=== PATIENT | male | born 1950 | race Caucasian/White ===

== ENCOUNTER 2023-06-14 12:43 | Emergency (ER) | payer MEDICARE ==
[~2023-06-14] VITALS: Ht 172.7 cm; Wt 95.3 kg
[2023-06-14 12:45] VITALS: BP_SYST 147; PULSE 82; RESP 18; TEMP 98.2; O2SAT 96
[2023-06-14 14:00] LABS: BASOPHILS # (AUTO) 0.1 K/uL (0.0-0.2); BASOPHILS % (AUTO) 0.8 % (0.0-2.0); EOSINOPHILS # (AUTO) 0.1 K/uL (0.0-0.4); EOSINOPHILS % (AUTO) 1.9 % (0.0-4.0); HEMATOCRIT 38.7 % (36-54); HEMOGLOBIN 12.5 g/dL (14.0-18.0); LYMPHOCYTES # (AUTO) 1.9 K/uL (1.0-5.5); LYMPHOCYTES % (AUTO) 28.6 % (20.5-51.5); MEAN CORPUSCULAR HEMOGLOBIN 31 pg (27-31); MEAN CORPUSCULAR HGB CONC 32 % (32-36); MEAN CORPUSCULAR VOLUME 95 fL (79.0-98.0); MONOCYTES # (AUTO) 0.7 K/uL (0.0-1.0); MONOCYTES % (AUTO) 10.5 % (1.7-9.3); NEUTROPHILS # (AUTO) 3.9 K/uL (1.8-7.7); NEUTROPHILS % (AUTO) 58.2 % (40.0-70.0); PLATELET COUNT (AUTO) 157 K/uL (130-430); RED CELL DISTRIBUTION WIDTH 13.9 % (9.0-15.0); WHITE BLOOD COUNT (AUTO) 6.6 K/uL (4.8-10.8)
[2023-06-14] MEDS ORDERED: FURO-150 PO (14:10)
[2023-06-14] MEDS ORDERED: DABI110C PO (14:10)
[2023-06-14 14:16] LABS: PROTHROMBIN TIME 10.8 SECS (9.5-12.5)
[2023-06-14 14:18] LABS: ANION GAP 9 (5-15); CALCIUM 9.4 mg/dL (8.4-11.0); CARBON DIOXIDE 20 mmol/L (23-29); CHLORIDE 103 mmol/L (98-107); CREATININE 0.91 mg/dL (0.55-1.30); GLUCOSE 104 mg/dL (74-106); POTASSIUM 3.7 mmol/L (3.5-5.1); SODIUM SERUM 132 mmol/L (136-145); UREA NITROGEN, BLOOD 25 mg/dL (8-21)
[2023-06-14 14:24] LABS: ALANINE AMINOTRANSFERASE 27 U/L (12-78); ALBUMIN 3.4 g/dL (3.4-4.8); ASPARTATE AMINOTRANSFERASE 18 U/L (10-37); TOTAL BILIRUBIN 0.4 mg/dL (0.0-1.0)
[2023-06-14] MEDS ORDERED: NITROGLYCERIN 0.4 MG TAB.SUBL SL ONE (17:15)
[2023-06-14] MEDS ORDERED: MORPHINE 2 MG/ML INJ. SYRINGE IVP ONE (18:00)
[2023-06-14 18:12] VITALS: BP_SYST 123; PULSE 81; RESP 19; TEMP 97.8; O2SAT 98
== END 2023-06-14 18:10 | disposition left against medical advice (07) ==
LOC: SED 12:43
DX: R07.9 Chest pain, unspecified (principal); I10 Essential (primary) hypertension; Z88.0 Allergy status to penicillin; Z88.6 Allergy status to analgesic agent; Z88.8 Allergy status to other drugs, medicaments and biological substances; Z79.899 Other long term (current) drug therapy
CPT/HCPCS: 36415; 71045; 80053; 84484; 85025; 85610-TC; 85730-TC; 93005; 99285

== ENCOUNTER 2023-06-18 07:04 | Emergency (ER) | payer MEDICARE ==
[~2023-06-18] VITALS: Ht 177.8 cm; Wt 99.8 kg
[~2023-06-18 07:04] MED LIST: DABI110C PO; FURO-150 PO
[2023-06-18] MEDS ORDERED: FAMOTIDINE PF 20 MG/2 ML VIAL IVP ONE (07:15)
[2023-06-18] MEDS ORDERED: ONDANSETRON HCL 4 MG/2 ML VIAL IVP ONE (07:15)
[2023-06-18 07:41] LABS: BASOPHILS % (AUTO) 0.4 % (0.0-2.0); EOSINOPHILS # (AUTO) 0.1 K/uL (0.0-0.4); EOSINOPHILS % (AUTO) 1.2 % (0.0-4.0); HEMATOCRIT 40.8 % (36-54); HEMOGLOBIN 13.2 g/dL (14.0-18.0); LYMPHOCYTES # (AUTO) 1.2 K/uL (1.0-5.5); LYMPHOCYTES % (AUTO) 16.1 % (20.5-51.5); MEAN CORPUSCULAR HEMOGLOBIN 31 pg (27-31); MEAN CORPUSCULAR HGB CONC 32 % (32-36); MEAN CORPUSCULAR VOLUME 95 fL (79.0-98.0); MONOCYTES # (AUTO) 0.6 K/uL (0.0-1.0); MONOCYTES % (AUTO) 7.4 % (1.7-9.3); NEUTROPHILS # (AUTO) 5.7 K/uL (1.8-7.7); NEUTROPHILS % (AUTO) 74.9 % (40.0-70.0); PLATELET COUNT (AUTO) 170 K/uL (130-430); RED BLOOD CELL COUNT(AUTO) 4.31 MIL/uL (4.2-6.2); RED CELL DISTRIBUTION WIDTH 13.8 % (9.0-15.0); WHITE BLOOD COUNT (AUTO) 7.6 K/uL (4.8-10.8)
[2023-06-18 07:52] VITALS: BP_SYST 130; PULSE 76; RESP 18; TEMP 98.2; O2SAT 97
[2023-06-18 07:52] LABS: ANION GAP 9 (5-15); CALCIUM 9.5 mg/dL (8.4-11.0); CARBON DIOXIDE 25 mmol/L (23-29); CHLORIDE 103 mmol/L (98-107); CREATININE 0.98 mg/dL (0.55-1.30); GLUCOSE 122 mg/dL (74-106); POTASSIUM 4.1 mmol/L (3.5-5.1); SODIUM SERUM 137 mmol/L (136-145); UREA NITROGEN, BLOOD 25 mg/dL (8-21)
[2023-06-18 07:56] LABS: INR 1.1 (0.80-1.20)
[2023-06-18 07:59] LABS: ALANINE AMINOTRANSFERASE 28 U/L (12-78); ALBUMIN 3.7 g/dL (3.4-4.8); ASPARTATE AMINOTRANSFERASE 18 U/L (10-37); TOTAL BILIRUBIN 0.4 mg/dL (0.0-1.0); TOTAL PROTEIN, SERUM 7.6 g/dL (6.4-8.3)
[2023-06-18] MEDS ORDERED: MORPHINE 4 MG INJ. 4 MG/ML VIAL IVP ONE (08:00)
[2023-06-18] MEDS ORDERED: NITROGLYCERIN 0.4 MG TAB.SUBL SL ONE (08:00)
[2023-06-18] MEDS ORDERED: ASPIRIN 325 MG TABLET PO ONE (10:00)
[2023-06-18 12:20] LABS: BILIRUBIN,URINE NEGATIVE (NEGATIVE); BLOOD, URINE NEGATIVE (NEGATIVE); CLARITY/URINE CLEAR (CLEAR); GLUCOSE,URINE NEGATIVE (NEGATIVE); KETONES,URINE NEGATIVE (NEGATIVE); LEUKOCYTE ESTERASE ,URINE NEGATIVE (NEGATIVE); NITRITE, URINE NEGATIVE (NEGATIVE); PROTEIN URINE NEGATIVE (NEGATIVE); UROBILINOGEN,URINE 0.2 (0.2-1.0)
[2023-06-18 12:21] LABS: COLOR,URINE YELLOW (YELLOW)
[2023-06-18 12:28] VITALS: BP_SYST 144; PULSE 71; RESP 20; TEMP 97.1; O2SAT 98
== END 2023-06-18 11:33 | disposition home or self-care (01) ==
LOC: SED 07:04
DX: R10.13 Epigastric pain (principal); R07.2 Precordial pain; R53.1 Weakness; I10 Essential (primary) hypertension; Z88.0 Allergy status to penicillin; Z88.6 Allergy status to analgesic agent; Z88.8 Allergy status to other drugs, medicaments and biological substances; Z79.899 Other long term (current) drug therapy
CPT/HCPCS: 99285; 96374; 71045; 96375; 80053; 81001; 83880; 83690; 85025; 85610; 85730; 87040; 87086; 84484; 36415; 93005; 83605; 81003; J3490; J2405; J2270

== ENCOUNTER 2023-09-02 01:03 | Inpatient (IN) | payer MEDICARE ==
[2023-09-02] VITALS (7 sets, daily range): BP systolic 109–154; PULSE 63–76; RESP 15–20; TEMP 96.9–100; O2SAT 90–100
[~2023-09-02] VITALS: Ht 180.3 cm; Wt 106.6 kg
[2023-09-02] MEDS ORDERED: NITROGLYCERIN 1 INCH (GM) OINT. TD ONE (01:15)
[2023-09-02] MEDS ORDERED: NITROGLYCERIN 0.4 MG TAB.SUBL SL ONE ×2 (01:15→03:00)
[2023-09-02] MEDS ORDERED: ASPIRIN 81 MG TAB.CHEW PO ONE (01:30)
[2023-09-02] MEDS ORDERED: traMADol HCL HCL 50 MG TABLET (ULTRAM) PO ONE (02:15)
[2023-09-02 02:48] LABS: ANION GAP 11 (5-15); CALCIUM 8.6 mg/dL (8.4-11.0); CARBON DIOXIDE 21 mmol/L (23-29); CHLORIDE 107 mmol/L (98-107); CREATININE 1.04 mg/dL (0.55-1.30); GLUCOSE 126 mg/dL (74-106); POTASSIUM 4.5 mmol/L (3.5-5.1); SALICYLATE 2 mg/dL (3-30); SODIUM SERUM 139 mmol/L (136-145); UREA NITROGEN, BLOOD 24 mg/dL (8-21)
[2023-09-02 02:53] LABS: BASOPHILS % (AUTO) 0.4 % (0.0-2.0); EOSINOPHILS # (AUTO) 0.1 K/uL (0.0-0.4); EOSINOPHILS % (AUTO) 0.7 % (0.0-4.0); HEMATOCRIT 38.1 % (36-54); LYMPHOCYTES # (AUTO) 1.2 K/uL (1.0-5.5); LYMPHOCYTES % (AUTO) 11.7 % (20.5-51.5); MEAN CORPUSCULAR HEMOGLOBIN 32 pg (27-31); MEAN CORPUSCULAR HGB CONC 34 % (32-36); MEAN CORPUSCULAR VOLUME 94 fL (79.0-98.0); MONOCYTES # (AUTO) 0.7 K/uL (0.0-1.0); MONOCYTES % (AUTO) 6.9 % (1.7-9.3); NEUTROPHILS # (AUTO) 8.2 K/uL (1.8-7.7); NEUTROPHILS % (AUTO) 80.3 % (40.0-70.0); PLATELET COUNT (AUTO) 185 K/uL (130-430); RED BLOOD CELL COUNT(AUTO) 4.05 MIL/uL (4.2-6.2); RED CELL DISTRIBUTION WIDTH 13.7 % (9.0-15.0); WHITE BLOOD COUNT (AUTO) 10.2 K/uL (4.8-10.8)
[2023-09-02 02:59] LABS: ACETAMINOPHEN < 1 ug/mL (1-30); ALCOHOL, BLOOD < 3 mg/dL (<10)
[2023-09-02 03:14] LABS: INR 1.1 (0.80-1.20)
[2023-09-02] MEDS ORDERED: MORPHINE 2 MG/ML INJ. SYRINGE IVP ONE (03:30)
[2023-09-02 03:42] LABS: BARBITURATE, URINE NEGATIVE (NEG <=200); BENZODIAZEPINE, URINE NEGATIVE (NEG <=150); CANNABINOID, URINE NEGATIVE (NEG <=50); COCAINE, URINE NEGATIVE (NEG <=150); METHAMPHETAMINES SCREEN,URINE NEGATIVE (NEG <=500); OPIATE, URINE NEGATIVE (NEG <=100); PHENCYCLIDINE SCREEN,URINE NEGATIVE (NEG <=25); UR TRICYCLIC ANTIDEPRESSANTS NEGATIVE (NEG <=300); URINE AMPHETAMINE NEGATIVE (NEG <=500); URINE METHADONE NEGATIVE (NEG <=200); URINE OXYCODONE SCREEN NEGATIVE (NEG <=100)
[2023-09-02] MEDS ORDERED: NALOXONE HCL 0.4 MG/ML AMP (NARCAN) IVP PRN ×2 (12:45)
[2023-09-02] MEDS ORDERED: ONDANSETRON HCL 4 MG/2 ML VIAL IVP PRN (12:45)
[2023-09-02] MEDS ORDERED: MORPHINE 2 MG/ML INJ. SYRINGE IVP PRN (12:45)
[2023-09-02] MEDS ORDERED: HYDROcodone/ACETAMIN 5-325 MG TAB (NORCO/ VICODIN) PO PRN (12:45)
[2023-09-02] MEDS ORDERED: ACETAMINOPHEN 325 MG TABLET PO PRN ×4 (12:45→13:00)
[2023-09-02] MEDS ORDERED: DABIGATRAN ETEXILATE MESYLATE 75 MG CAPSULE PO SCH (21:00)
[2023-09-03] VITALS: BP_SYST 120; PULSE 71; RESP 20; TEMP 99.3; O2SAT 99
[2023-09-03 08:00] VITALS: O2SAT 99
[2023-09-03 08:15] VITALS: BP_SYST 117; PULSE 82; RESP 18; TEMP 98.9; O2SAT 99
== END 2023-09-03 08:35 | disposition left against medical advice (07) | DRG 556 ==
LOC: SED 01:03 → STU 04:31
PROVIDERS: ADMIT Preventive Medicine Preventive Medicine/Occupational Environmental Medicine; ATTEND Preventive Medicine Preventive Medicine/Occupational Environmental Medicine
DX: M79.7 Fibromyalgia (principal); R07.89 Other chest pain; I48.91 Unspecified atrial fibrillation; Z53.29 Procedure and treatment not carried out because of patient's decision for other reasons; E78.00 Pure hypercholesterolemia, unspecified; Z20.822 Contact with and (suspected) exposure to COVID-19; I25.2 Old myocardial infarction; Z88.0 Allergy status to penicillin; Z88.8 Allergy status to other drugs, medicaments and biological substances; Z79.899 Other long term (current) drug therapy
CPT/HCPCS: 36415; 71045; 80048; 80307; 83690; 83880; 84484; 85025; 85610-TC; 85730-TC; 93005; 96374; 99285; G0378; G0480; G0481; G0482; J2270